=== PATIENT | male | born 1955 | race Caucasian/White ===

== ENCOUNTER 2017-01-07 14:41 | Observation (INO) | payer BC ==
[2017-01-07] MEDS ORDERED: 0.9 % SODIUM CHLORIDE 1,000 ML BAG IV ONE ×2 (15:15→15:50)
[2017-01-07 15:23] LABS: HEMATOCRIT 36.8 % (42.0-52.0); HEMOGLOBIN 12.2 gm/dl (14.0-18.0); MEAN CELL VOLUME 88.7 fl (81-97); MEAN CORPUSCULAR HGB CONC 33.2 g/dl (32-36); MEAN PLATELET VOLUME 10.2 fl (7.4-10.4); PLATELET COUNT 213 K/uL (130-400); RED BLOOD COUNT 4.15 M/uL (4.40-5.70); RED CELL DISTRIBUTION WIDTH 13.3 % (11.5-14.5)
--- NOTE | 2017-01-07 15:24 | Emergency Department Record ---
History of Present Illness - General Chief Complaint: Hypotension Stated Complaint: DIZZY, FEVER,LOW BP Time Seen by Provider: 01/07/17 15:08 Source: Patient Mode of Arrival: Ambulatory Limitations: No limitations - History of Present Illness Initial Comments: The patient is here due to a 2 day hx of not feeling well. It started yesterday with weakness, fever, chills, and low blood pressure. His temp at home was 101.8 and his BP was reading in the 80's systolic. He has had fatigue, malaise, but no cough, dysuria, CP, SOB, or back pain. The patient has no hx of similar issues and no new prescribed medicines. MD Complaint: Lightheadedness Onset/Timin -: Days(s) Timing: Gradual onset Description: Difficulty walking, Lightheadedness, Nausea, Off-balance History of Same: Yes History of Trauma: No Improves With: Remaining still, Rest Worsens With: Movement Associated Symptoms: Fever/chills, Weakness - Maame Coma Scale Eye Response: (4) Open spontaneously Motor Response: (6) Obeys commands Verbal Response: (5) Oriented Maame Total: 15 - Related Data Home Medications Medication Instructions Recorded Confirmed Last Taken Acetylcarnitine [Acetyl 500 mg PO TID 01/07/17 01/07/17 01/07/17 l-Carnitine] Albuterol Sulfate 0.083% [Neb] 3 ml NEB .EVERY 4-6 HOURS PRN 01/07/17 01/07/17 01/07/17 Albuterol Sulfate [Proair Hfa] 1 - 2 puff IH .EVERY 4-6 HOURS PRN 01/07/1701/0701/07/17 Ascorbic Acid [Vitamin C] 500 mg PO DAILY 01/07/17 01/07/17 01/07/17 Aspirin [Aspir-Low] 81 mg PO DAILY 01/07/17 01/07/17 01/07/17 Budesonide 1 mg IH ASDIR 01/07/17 01/07/17 01/07/17 Budesonide/Formoterol Fumarate 10.2 gm IH ASDIR 01/07/17 01/07/17 01/06/17 [Symbicort 160-4.5 Mcg Inhaler] Cholecalciferol (Vitamin D3) 2,000 unit PO BID 01/07/17 01/07/1717 [Vitamin D3] Clopidogrel Bisulfate [Clopidogrel] 75 mg PO DAILY 01/07/17 01/07/17 01/07/17 Famotidine 40 mg PO DAILY 01/07/17 01/07/17 01/07/17 Fexofenadine/Pseudoephedrine 1 each PO DAILY 01/07/17 01/07/17 01/07/17 [Chinyere-D 24 Hour Tablet] Glucagon,Human Recombinant 1 mg IJ ASDIR PRN 01/07/17 01/07/17 Unknown [Glucagon Emergency Kit] Glucosamine/D3/Boswellia Ananya 2 tab PO DAILY 01/07/17 01/07/17 01/07/17 [Glucosamine Daily Complex Tab] Insulin Lispro [Humalog] 100 unit SQ CONT 01/07/17 01/07/17 01/07/17 Iodine [Kelp] 150 mcg PO DAILY 01/07/17 01/07/17 01/07/17 Melatonin/Herbal Comb. No.184 1 tab PO QHS 01/07/17 01/07/17 01/07/17 [Melatonin + l-Theanine Softgel] Meloxicam [Mobic] 7.5 mg PO BID 01/07/17 01/07/17 01/07/17 Multivitamin [Daily Multiple 1 each PO DAILY 01/07/17 01/07/17 01/07/17 Vitamin] Niacin 500 mg PO BID 01/07/17 01/07/17 01/07/17 [place]-3/Dha/Epa/Fish Oil [[place] 3 1 each PO BID 01/07/17 01/07/17 01/07/17 500 Softgel] Potassium 99 mg PO BID 01/07/17 01/07/17 01/07/17 Rosuvastatin Calcium [Crestor] 20 mg PO DAILY 01/07/17 01/07/17 01/07/17 Tadalafil [Cialis] 10 mg PO ASDIR 01/07/17 01/07/17 01/07/17 Thyroid,Pork [Nature-Throid] 113.75 mg PO DAILY 01/07/17 01/07/17 01/07/17 Vitamin E 400 unit PO DAILY 01/07/17 01/07/17 01/07/17 Travel Screening - Travel/Exposure Within Last 30 Days Have you traveled within the last 30 days?: Yes Location Detail:: [place] - Travel/Exposure Within Last Year Have you traveled outside the [place] in the last year?: Yes Location Detail:: [facility] - Additonal Travel Details Have you been exposed to anyone with a communicable illness?: No - Travel Symptoms Symptom Screening: None Review of Systems Constitutional: Denies: Chills, Fever Eyes: Denies: Eye discharge ENT: Denies: Congestion Respiratory: Denies: Cough, Dyspnea Past Medical History - SOCIAL HISTORY Smoking Status: Never smoker Alcohol Use: None Drug Use: None - RESPIRATORY Hx Respiratory Disorders: Yes Hx Asthma: Yes Hx Sleep Apnea: Yes Hx of CPAP: Yes - CARDIOVASCULAR Hx Cardio Disorders: Yes Hx Abnormal EKG: Yes Hx Cardiac Cath: Yes - NEURO Hx Neuro Disorders: Yes Hx Dizziness: Yes - GI Hx Reflux: Yes Hx Hiatal Hernia: Yes - Hx Genitourinary Disorders: No - ENDOCRINE Hx Endocrine Disorders: Yes Hx Diabetes: Yes (Type 1) Hx Thyroid Disease: Yes - MUSCULOSKELETAL Hx Musculoskeletal Disorders: No - PSYCH Hx Psych Problems: Yes Hx Depression: Yes - HEMATOLOGY/ONCOLOGY Hx Hematology/Oncology Disorders: No Family Medical History Any Significant Family History?: No Physical Exam - General General Appearance: Alert, Oriented x3, Cooperative, No acute distress (The patient appears very comfortable and nontoxic.) - Head Head exam: Atraumatic, Normocephalic, Normal inspection - Eye Eye exam: Normal appearance, PERRL - ENT Throat exam: Normal inspection. negative: Tonsillar erythema, Tonsillar exudate - Neck Neck exam: Normal inspection, Full ROM. negative: Tenderness - Respiratory Respiratory exam: Normal lung sounds bilaterally. negative: Respiratory distress - Cardiovascular Cardiovascular Exam: Regular rate, Normal rhythm, Normal heart sounds - GI/Abdominal GI/Abdominal exam: Soft, Normal bowel sounds. negative: Tenderness - Extremities Extremities exam: Normal capillary refill. negative: Tenderness - Neurological Neurological exam: Alert, Normal gait, Oriented X3. negative: Abnormal gait, Motor sensory deficit Course Vital Signs 01/07/17 14:55 Temperature 98.5 F Pulse Rate 68 Respiratory 16 Rate Blood Pressure 89/52 Pulse Ox 97 - Reevaluation(s) Reevaluation #1: The patient is doing much better at this time. His BP is improving and he denies any pain or discomfort. 01/07/17 16:20 Reevaluation #2: The patient is doing better here but still feels lightheaded with walking. His BP is reading 95-100/60's now with a HR of 60. The patient has not had a fever here in the ER but did have one at home. I explained to the patient that I think he most likely has a viral infection but cannot completely R/O a bacterial infection. Due to that fact I did recommend watching the patient in the hospital overnight where we can monitor his vitals and recheck labs in the AM. I then did discuss the case with Dr. Yu who accepts the admission. 01/07/17 16:57 Medical Decision Making - Data Complexity MDM Data: Labs Ordered and/or Reviewed, X-Ray Ordered and/or Reviewed, EKG Ordered and/or Reviewed - Lab Data Result diagrams: 01/07/17 15:18 01/07/17 15:18 - EKG Data -: EKG Interpreted by Me EKG: No Acute Changes, Unchanged From Previous - Radiology Data Radiology results: Report reviewed (CXR: No acute changes per Rad.) Disposition Disposition: Admit Clinical Impression: Hypotension arterial Qualifiers: Hypotension type: unspecified hypotension type Qualified Code(s): I95.9 - Hypotension, unspecified Disposition: Still a Patient at [facility] Decision to Admit: Admit from ER Decision to Admit Date: 01/07/17 Decision to Admit Time: 17:00 Accepting Physician: Aimee Time Discussed w/Accepting Physician: 17:00 Condition: (2) Stable Forms: Patient Portal Access Time of Disposition: 17:00 Quality - Quality Measures Quality Measures: N/A - Blood Pressure Screening View Details: Yes Does Patient Have Any of the Following: No Blood Pressure Classification: Normal BP Reading Systolic Measurement: 89 Diastolic Measurement: 52 Screening for High Blood Pressure: < Normal BP, F/U Not Required > [G8783]
[2017-01-07 15:25] LABS: MEAN CORPUSCULAR HEMOGLOBIN 29.3 pg (27-33)
[2017-01-07 15:40] LABS: LACTIC ACID 1.8 mmol/L (0.7-2.1)
[2017-01-07 15:46] LABS: CKMB 0.5 ug/L (0-6)
[2017-01-07 16:03] LABS: ALBUMIN 3.4 gm/dL (3.5-5.0); AST/SGOT 20 U/L (17-59); BILIRUBIN,DIRECT 0.1 mg/dL (0-0.3); BLOOD UREA NITROGEN 22 mg/dL (9-20); CREATININE 1.1 mg/dL (0.66-1.25); EST GLOMERULAR FILTRATION RATE > 60 ml/min; GLUCOSE,RANDOM 139 mg/dL (70-110); TOTAL PROTEIN 5.9 gm/dL (6.3-8.2)
[2017-01-07 16:04] LABS: ALKALINE PHOSPHATASE 78 U/L (38-126); ALT/SGPT 41 U/L (21-72); C-REACTIVE PROTEIN 8.8 mg/dL (0.0-0.9); TROPONIN I < 0.012 ng/mL (0.00-0.034)
[2017-01-07 16:36] LABS: URINE APPEARANCE SL CLOUDY; URINE BILIRUBIN SMALL (NEGATIVE); URINE BLOOD NEGATIVE (NEGATIVE); URINE COLOR YELLOW; URINE GLUCOSE (UA) NEGATIVE (NEGATIVE); URINE KETONE NEGATIVE (NEGATIVE); URINE LEUKOCYTE ESTERASE NEGATIVE (NEGATIVE); URINE NITRITE NEGATIVE (NEGATIVE); URINE PROTEIN NEGATIVE (NEGATIVE)
[2017-01-07] MEDS ORDERED: ACETAMINOPHEN 500 MG TABLET PO PRN (19:19)
[2017-01-07] MEDS ORDERED: ALBUTEROL HFA 8 GM INHALER INH PRN (19:19)
[2017-01-07] MEDS ORDERED: INSULIN LISPRO 100 UNIT SQ SCH (19:19)
[2017-01-07] MEDS ORDERED: ALBUTEROL SULFATE (0.083%) 2.5 MG/3 ML NEB INH PRN (19:19)
[2017-01-07] MEDS ORDERED: BUDESONIDE 1 MG IH SCH (19:19)
[2017-01-07] MEDS ORDERED: ACETYLCARNITINE 500 MG PO SCH (22:00)
[2017-01-07] MEDS ORDERED: ALBUTEROL INH PRN (22:00)
[2017-01-07] MEDS ORDERED: POTASSIUM 99 MG PO SCH (22:00)
[2017-01-07] MEDS ORDERED: MELATONIN 5 MG TABLET PO SCH (22:00)
[2017-01-07] MEDS: MELOXICAM 7.5 MG TABLET PO SCH (23:42)
[2017-01-07] MEDS: RANITIDINE 150 MG PO SCH (23:42)
[2017-01-08] MEDS: 0.9 % SODIUM CHLORIDE 1000ML 1,000 ML IV PRN ×2 (01:03→10:16)
[2017-01-08 06:34] LABS: BASO % 0.2 % (0-6); EOS % 5.4 % (0-6); HEMATOCRIT 32.4 % (42.0-52.0); HEMOGLOBIN 10.5 gm/dl (14.0-18.0); LYMPH % 12.5 % (16-45); MEAN CELL VOLUME 89.5 fl (81-97); MEAN CORPUSCULAR HGB CONC 32.4 g/dl (32-36); MEAN PLATELET VOLUME 10.6 fl (7.4-10.4); MONO % 7.9 % (0-9); PLATELET COUNT 189 K/uL (130-400); RED BLOOD COUNT 3.62 M/uL (4.40-5.70); RED CELL DISTRIBUTION WIDTH 13.6 % (11.5-14.5); WHITE BLOOD COUNT W/O DIFF 17.5 K/uL (4.2-12.2)
[2017-01-08] MEDS ORDERED: IODINE 150 MCG PO SCH (10:00)
[2017-01-08] MEDS ORDERED: ENOXAPARIN 40 MG/0.4 ML SYR SQ SCH (10:00)
[2017-01-08] MEDS ORDERED: ASPIRIN 81 MG TABEC PO SCH (10:00)
[2017-01-08] MEDS ORDERED: PATIENT OWN MED: MC SCH (10:00)
[2017-01-08] MEDS ORDERED: CLOPIDOGREL 75MG TABLET PO SCH (10:00)
[2017-01-08] MEDS ORDERED: ROSUVASTATIN 20 MG PO SCH (10:00)
[2017-01-08] MEDS: RANITIDINE 150 MG PO SCH (10:14)
[2017-01-08] MEDS: MELOXICAM 7.5 MG TABLET PO SCH (10:15)
--- NOTE | 2017-01-08 11:15 | Discharge Note ---
VTE H&P Assessment - Risk for VTE Risk for VTE: Yes Risk Level: Low Risk Assessment Date: 01/07/17 Risk Assessment Time: 22:00 VTE Orders Placed or Will Be Placed: Yes Discharge Medications - Discharge Medications Home Medications: Ambulatory Orders Acetylcarnitine [Acetyl l-Carnitine] 500 mg PO TID 01/07/17 [Last Taken 01/07/17 ] Albuterol Sulfate 0.083% [Neb] 3 ml NEB .EVERY 4-6 HOURS PRN 01/07/17 [Last Taken 01/07/17] Albuterol Sulfate [Proair Hfa] 1 - 2 puff IH .EVERY 4-6 HOURS PRN 01/07/17 [ Last Taken 01/07/17] Ascorbic Acid [Vitamin C] 500 mg PO DAILY 01/07/17 [Last Taken 01/07/17] Aspirin [Aspir-Low] 81 mg PO DAILY 01/07/17 [Last Taken 01/07/17] Budesonide 1 mg IH ASDIR 01/07/17 [Last Taken 01/07/17] Budesonide/Formoterol Fumarate [Symbicort 160-4.5 Mcg Inhaler] 10.2 gm IH ASDIR 01/07/17 [Last Taken 01/06/17] Cholecalciferol (Vitamin D3) [Vitamin D3] 2,000 unit PO BID 01/07/17 [Last Taken 01/07/17] Clopidogrel Bisulfate [Clopidogrel] 75 mg PO DAILY 01/07/17 [Last Taken 01/07/17 ] Famotidine 40 mg PO DAILY 01/07/17 [Last Taken 01/07/17] Fexofenadine/Pseudoephedrine [Chinyere-D 24 Hour Tablet] 1 each PO DAILY [Last Taken 01/07/17] Glucagon,Human Recombinant [Glucagon Emergency Kit] 1 mg IJ ASDIR PRN 01/07/17 [ Last Taken Unknown] Glucosamine/D3/Boswellia Ananya [Glucosamine Daily Complex Tab] 2 tab PO DAILY [Last Taken 01/07/17] Insulin Lispro [Humalog] 100 unit SQ CONT 01/07/17 [Last Taken 01/07/17] Iodine [Kelp] 150 mcg PO DAILY 01/07/17 [Last Taken 01/07/17] Melatonin/Herbal Comb. No.184 [Melatonin + l-Theanine Softgel] 1 tab PO QHS 05/14 [Last Taken 01/07/17] Meloxicam [Mobic] 7.5 mg PO BID 01/07/17 [Last Taken 01/07/17] Multivitamin [Daily Multiple Vitamin] 1 each PO DAILY 01/07/17 [Last Taken 01/07] Niacin 500 mg PO BID 01/07/17 [Last Taken 01/07/17] [place]-3/Dha/Epa/Fish Oil [[place] 3 500 Softgel] 1 each PO BID 01/07/17 [Last Taken 01/07/17] Potassium 99 mg PO BID 01/07/17 [Last Taken 01/07/17] Rosuvastatin Calcium [Crestor] 20 mg PO DAILY 01/07/17 [Last Taken 01/07/17] Tadalafil [Cialis] 10 mg PO ASDIR 01/07/17 [Last Taken 01/07/17] Thyroid,Pork [Nature-Throid] 113.75 mg PO DAILY 01/07/17 [Last Taken 01/07/17] Vitamin E 400 unit PO DAILY 01/07/17 [Last Taken 01/07/17] Discharge Note - Date Date of Discharge Note: 01/08/17 Disposition: Home, Self-Care Condition: (2) Stable Instructions: Viral Syndrome (DC) Additional Instructions: follow up with Bunny Rhoades in 3 days sooner if worse Referrals: MARIAM RHOADES [Primary Care Provider] - Forms: Patient Portal Access Activity at Discharge: Increase Activity as Tolerated
--- NOTE | 2017-01-09 07:31 | RADIOLOGY REPORT ---
EXAM: CHEST, TWO VIEWS HISTORY: FEVER AND WEAKNESS. TECHNIQUE: Two views of the chest were obtained. Comparison: None. FINDINGS: The heart is not enlarged. The lungs and pleural spaces are clear. Old left sided rib fractures. IMPRESSION: NO ACUTE CARDIOPULMONARY ABNORMALITY. JOB NUMBER: [id number] MTDD
--- NOTE | 2017-01-09 09:40 | History and Physical Report ---
DATE OF EVALUATION: 01/08/2017 DATE OF ADMISSION: 01/07/2017 CHIEF COMPLAINT: Hypotension, chills. HISTORY OF PRESENT ILLNESS: This 61-year-old male presented to the Emergency Department with a low blood pressure and chills, which started approximately 24 hours prior to admission. He also had sweats. His temperature at home was 101.8. Systolic blood pressures in the 80s. He had fatigue, malaise, no cough, no dysuria, no chest pain or shortness of breath or back pain. The patient had a similar episode of this with dehydration in 2013. Patient was seen in the Emergency Department by Dr. Decker with 2 liters of fluid. Admitted to the hospital for IV hydration and further evaluation. Blood cultures were obtained. PAST MEDICAL HISTORY: Allergic asthma. He did smoke on-and-off when he was younger, but he is no longer smoking. Obstructive sleep apnea, and uses CPAP. Coronary artery disease. Depression. Diabetes mellitus type 1. He is on an insulin pump. GERD. Hiatal hernia. PAST SURGICAL HISTORY: Dupuytren's contractures, 3 fingers on the right hand, fifth, fourth, and third. Two fingers on the left hand, the fifth and fourth. Stents x 2 in the LAD. Shoulder surgery. Gallbladder and hernia surgery. SOCIAL HISTORY: He is an ex-alcoholic. He quit in 1992. No drugs. Occasional cigarette smoking when he was younger, but not a lot, on and off. 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 He just traveled to [place] for work about 1 week ago. Last week, he had a Xiaflex injection into the fourth finger of the left hand through an [employer] doctor. That looks good. It is a little swollen, but no signs of infection. MEDICATIONS ON ADMISSION: Glucagon p.r.n., Symbicort 160/4.5 one puff b.i.d., aspirin 81 mg daily, vitamin C 500 mg daily, acetylcarnitine 500 mg t.i.d., Chinyere-D 1 daily, famotidine 40 mg daily, Plavix 75 mg daily, vitamin D3 2000 units b.i.d. He uses Humalog insulin into his insulin pump. He checks his sugars 6 times a day in the pump. He feeds in the carbohydrates and the insulin and adjusts for what he is eating. Glucosamine 2 tabs daily, [place] 3 one b.i.d., niacin 500 mg b.i.d., multiple vitamins 1 daily, melatonin 1 at bedtime, iodine kelp 150 mcg daily, vitamin D 400 units daily, thyroid (pork) 113.75 mg daily, Cialis 10 mg p.r.n., Crestor 20 mg daily, potassium 99 mg b.i.d., ProAir 1-2 puffs every 4 hours p.r.n., albuterol in nebulizer every 4 hours p.r.n., Mobic 7.5 b.i.d. ALLERGIES: Lipitor, azithromycin, penicillin, and sulfa. FAMILY HISTORY: Unremarkable. REVIEW OF SYSTEMS: HEENT: No upper respiratory infection symptoms; however, he does have a slight sore throat today. No cough or cold. Cardiovascular: Regular rate and rhythm without murmurs, clicks, rubs or gallops. Respiratory: No shortness of breath. No cough. No hemoptysis. He did have an ex-smoking history, which is on and off. Not much smoking is what he said. Gastrointestinal: Since he was admitted, he has had 3 bouts of diarrhea during the night. No vomiting, constipation or nausea. No hematochezia. Some abdominal cramping before the diarrhea. Genitourinary: No dysuria, hematuria, frequency, or burning on urination. Musculoskeletal: No joint or bony abnormalities. He has Dupuytren's contractures with an injection into the left hand 1 week ago at [facility] [place]. Neurologic: No CVA, paralysis, or paresthesias. Endocrine: He has diabetes type 1. He is on an insulin pump. He also has hypothyroidism. Integument: No rash, ulcers, changes in moles, or yellow skin. PHYSICAL EXAMINATION: VITAL SIGNS: Height 5'11". Weight 173 pounds. Temperature 98.1. Pulse 57. Blood pressure 115/60. Respiratory rate 18. Pulse ox 96% on room air. HEENT: Pupils equal, round, and reactive to light and accommodation. Extraocular muscles intact. Throat is slightly red on the left side of the throat. Nose is clear. Tympanic membranes mera. NECK: Supple. No jugular venous distention. No hepatojugular reflux. No carotid bruits. Thyroid is smooth. CARDIOVASCULAR: Regular rate and rhythm without murmurs, clicks, rubs, or gallops. RESPIRATORY: Clear to auscultation and percussion. ABDOMEN: Soft, nontender, no hepatosplenomegaly. No masses or tenderness. Bowel sounds active. No bruits. EXTREMITIES: No pitting edema. No cyanosis or clubbing. Full range of motion. Peripheral pulses good. BREASTS: Normal male breasts. GENITALIA: Deferred. RECTAL: Deferred. NEUROLOGIC: Cranial nerves II-XII intact. No gross deficits. Sensation normal. Strength normal. Deep tendon reflexes equal bilaterally. Babinski is negative. MENTAL STATUS: Alert and oriented x3. IMPRESSION: 1. Hypotension, resolving. 2. Dehydration, resolving. 3. Diarrhea. 4. Pharyngitis. 5. Viral syndrome. Blood cultures were obtained. PLAN: Blood cultures were obtained in the ER. IV fluids through the night. Strep screen was done this morning on his throat, because it was slightly red. His repeat labs show a 17,000 white count this morning, 14,000 last night. MTDD
--- NOTE | 2017-01-09 12:10 | Discharge Summary ---
OBSERVATION PATIENT DATE OF ADMISSION: 01/07/2017 DATE OF DISCHARGE: 01/08/2017 at 12:08 p.m. DISCHARGE DIAGNOSES: 1. Viral syndrome. 2. Dehydration. 3. Hypotension, resolved. ATTENDING PHYSICIAN: Natanael Yu DO REASON FOR HOSPITALIZATION: This 61-year-old male presented to the Emergency Department with low blood pressure, weakness, dizziness. This started about 24 hours prior to coming to the hospital. He felt really no other symptoms, but he was feeling tired. He was evaluated by Dr. Decker and admitted to the hospital for hypotension and possible infection. The concern was for no symptoms for his hypotension and he also had a fever at home of 101.2. No fevers in the Emergency Department or in the hospital. He was admitted to the hospital for further care and observation. His CBC in the Emergency Department was 14,000. White count went up to 17,000, but during the night, he developed some throat pain and also diarrhea x 3 stools. He was feeling much better. His blood pressure had normalized, and his dehydration had resolved. SIGNIFICANT FINDINGS: As stated. Chest x-ray was negative. EKG was normal. No acute changes. LABORATORY: White count 14,000. Hemoglobin 12.2. His bands were 83. Lymphs were decreased. Potassiums 3.4. He is a diabetic. His sugars are kind of in the normal range beforehand. He uses an insulin pump, which he checks his sugars 6 times a day. Troponin I was negative. C-reactive protein was slightly elevated at 8.8. Urine was negative. C difficile toxin was negative. Strep screen was negative. HOSPITAL COURSE: He was hydrated. He is feeling much better. He is still a little tired. I feel that it is a virus that is causing his symptoms, and blood cultures are pending. They will be back in 3 days. CONDITION ON DISCHARGE: Much improved. DISCHARGE INSTRUCTIONS: Follow up with Bunny Rhoades or Dr. Jean-Baptiste in 3 days. Hopefully, the cultures will be back at that time. Return to the Emergency Department or family doctor sooner if he is worse. Continue his home medications. Increase the fluids at home. HOME MEDICATIONS: Symbicort 160/4.5 one puff b.i.d., aspirin 81 mg daily, vitamin C 500 daily, acetylcarnitine 500 mg t.i.d., Chinyere-D 1 a day, famotidine 40 mg daily, Plavix 75 mg daily, vitamin D3 2000 units b.i.d. He has an insulin pump. He checks his sugars 6 times a day. Glucosamine 2 tablets daily, [place] 3 1000 mg b.i.d., niacin 500 mg b.i.d., multivitamins 1 a day, melatonin at bedtime, iodine kelp 150 mcg daily, vitamin E 400 units daily, thyroid (pork) 113.75 mg daily, Cialis p.r.n., Crestor 20 mg daily, potassium 99 mEq b.i.d., ProAir inhaler 2 puffs every 4 hours p.r.n., meloxicam 7.5 mg b.i.d., albuterol nebulization p.r.n. CC: Kaden Jean-Baptiste, DO Bunny PATTERSON
== END 2017-01-08 13:58 | disposition home or self-care (01) ==
LOC: ER 14:41 → MEDSURG 18:00
PROVIDERS: ADMIT Emergency Medicine; ATTEND Emergency Medicine
DX: B34.9 Viral infection, unspecified (principal); E86.0 Dehydration; R19.7 Diarrhea, unspecified; J02.9 Acute pharyngitis, unspecified; I95.9 Hypotension, unspecified; E11.9 Type 2 diabetes mellitus without complications; Z96.41 Presence of insulin pump (external) (internal); Z79.4 Long term (current) use of insulin
CPT/HCPCS: 99285 ×2; 96360; 96361; 82550; 83605; 85025; 80076; 86140; 82553; 84484; 80048; 36416; 82948; 81003; 87880; 87427; 87493; 85027; 71020; 94640; 93005 ×2; 93010; G0378 ×2; J3490 ×2; 99220; J1650; J7030